=== PATIENT | male | born 1970 | race Caucasian/White ===

== ENCOUNTER 2018-11-15 10:16 | Day surgery (SDC) | payer BC ==
[2018-11-13 09:36] VITALS: BMI 25.1
[~2018-11-15 10:16] MED LIST: ALPRAZolam 0.25 MG TAB PO PRN; ALPRAZolam 0.5 MG TAB PO PRN; ASPIRIN 325 MG TAB PO STA; ATORVASTATIN 80 MG TAB PO STA; HYDROmorphone 0.5 MG/0.5 ML SYRINGE IVP STA; NITROGLYCERIN SL TABS 0.4 MG TAB SUBLINGUAL PRN; SODIUM CHLORIDE 0.9% 1,000 ML in EMPTY BAG 1 BAG IV ONE; hydrALAZINE HCL 20 MG/ML 1 ML VIAL IVP STA
[2018-11-15] MEDS ORDERED: SODIUM CHLORIDE 0.9% 1,000 ML IV ONE (11:35)
[2018-11-15 11:47] VITALS: RESP 16; TEMP 90
[2018-11-15] MEDS ORDERED: VERAPAMIL 2.5 MG/ML 2 ML AMP ONE (11:55)
[2018-11-15] MEDS ORDERED: LIDOCAINE 1% INJ 10MG/ML (20 ML MDV) ONE (11:56)
[2018-11-15] MEDS ORDERED: HEPARIN SODIUM 1,000 UN/ML (10ML VL) ONE (11:56)
[2018-11-15] MEDS ORDERED: MIDAZOLAM (PF) 2 MG/2 ML VIAL IVP ONE (11:59)
[2018-11-15] MEDS ORDERED: LIDOCAINE 1% INJ 10MG/ML (20 ML MDV) SQ ONE (12:05)
[2018-11-15] MEDS: VERAPAMIL SYRINGE (5 MG/10 ML) INTRAARTER ONE ×2 (12:06→12:15)
[2018-11-15] MEDS ORDERED: HEPARIN SODIUM 1,000 UN/ML (10ML VL) IV ONE (12:09)
[2018-11-15] MEDS ORDERED: HYDROmorphone 1 MG/ML 1 ML SYRINGE ONE (12:10)
[2018-11-15] MEDS ORDERED: HYDROmorphone 1 MG/ML 1 ML SYRINGE IVP ONE (12:11)
[2018-11-15] MEDS ORDERED: IOPAMIDOL-370 125ML BTL INJ ONE (12:15)
[2018-11-15] MEDS ORDERED: SODIUM CHLORIDE 0.9% 1,000 ML IV SCH (12:30)
[2018-11-15] MEDS ORDERED: RX INFO: IV CONTRAST WAS GIVEN 1 EACH MISC MISCELLANE PRN (12:30)
--- NOTE | 2018-11-15 12:46 | P.PCN ---
Date of Procedure: 11/15/18 Operative Findings: CARDIAC CATHETERIZATION PERFORMING PHYSICIAN: Johnie Melo MD, RPVI PROCEDURE PERFORMED: 1. Selective right and left coronary angiogram 2. Left heart catheterization INDICATION: This is a pleasant 48-year-old gentleman with family history of coronary artery disease who continues to have chest discomfort concerning for severe underlying coronary artery disease. Because of that heart catheterization was advised. I discussed with the patient in the office as an outpatient that we can go stress test but the patient insisting on going for coronary angiogram and because of that he was brought today. COMPLICATION: None APPROACH: Right radial artery LEVEL OF SEDATION: Moderate sedation length of 13 minutes PROCEDURE DESCRIPTION: After obtaining an informed consent, the patient was brought to cardiac lab coordinator. Local anesthesia was performed using lidocaine subcutaneously. The right radial artery was cannulated using Seldinger technique, the guidewire passed easily, following that we advanced a 5-[place] sheath dilator assembly, the wire and dilator were removed and sheath was flushed. Following that, 2 mg of verapamil along with 5000 unit heparin were given. Selective right and left coronary angiogram using a 6-[place]err[place]ian JR4 and JL 3.5 catheters. Following that we did left heart catheterization using 6-[place] pigtail catheter. The procedure was completed there was no complication. SELECTIVE CORONARY ANGIOGRAM: The right coronary artery: Is a large caliber vessel and a dominant vessel. Its angiographically normal distally distally bifurcates into PDA and PLV branches both appeared to be angiographically normal. Left main: It is angiographically normal. Bifurcates into left circumflex and left anterior descending artery The left circumflex: Is a large caliber vessel and sent nondominant vessel. Its angiographically normal. In the proximal portion gives rises into a high takeoff OM branch which appears to be angiographically normal. The left anterior descending artery: It is a large caliber vessel. Its angiographically normal. In the midportion gives rises into a large diagonal branch which seems to be angiographically normal. HEMODYNAMICS: The LVEDP was 12 mmHg without significant gradient across aortic valve CONCLUSION: #1 normal coronary angiogram #2 normal left ventricular end-diastolic pressure POSTPROCEDURE MANAGEMENT: Medical treatment Follow-up with the patient
[2018-11-15 15:47] VITALS: PULSE 69
[2018-11-15] MEDS ORDERED: ACETAMINOPHEN TAB 325 MG TAB PO PRN (15:47)
[2018-11-15 16:59] VITALS: BP 111/61
== END 2018-11-15 17:10 | disposition home or self-care (01) ==
LOC: CATHCVL 10:16 → EDSEX 11:50 → CATHCVL 17:10
PROVIDERS: ATTEND Internal Medicine Interventional Cardiology
DX: R07.89 Other chest pain (principal); R94.39 Abnormal result of other cardiovascular function study; Z82.49 Family history of ischemic heart disease and other diseases of the circulatory system; Z79.82 Long term (current) use of aspirin; Z79.899 Other long term (current) drug therapy
CPT/HCPCS: 93458; C1769; C1894; J2001; J1644; J1170; Q9967; J2250